=== PATIENT | female | born 1980 | race Caucasian/White ===

== ENCOUNTER 2017-06-21 20:10 | Emergency (ER) | payer BC, OTHER ==
[~2017-06-21] VITALS: Ht 165.1 cm; Wt 93.0 kg
[~2017-06-21 20:10] MED LIST: AMOX250C PO; CYAN100T PO; CYCL10TA9 PO; DCS100C PO; HYDR-34 PO; IBP600T1 PO; KETO-22 PO; MULT1CAP27 PO; NAPR-243 PO; NFBIOT1000 PO; NORG1TAB15 PO; OXYC-12 PO; PRM25T PO; Simethicone PO; TRAM50TA2 PO
--- OUTSIDE RECORDS SUMMARY | 2017-06-21 20:16 | XMS REPORT ---
Author Author ROMY EDMONDS [facility], [place] eClinicalWorks Address Unknown Phone Unavailable Care Team Providers Care Communications Consultant Name Role Phone ROMY EDMONDS CP Unavailable Allergies, Adverse Reactions, Alerts Substance Reaction Event Type N.K.D.A. Info Not Available Non Drug Allergy Problems Problem Type Condition ICD-9 Code Onset Dates Condition Status Assessment Health examination of defined subpopulation V70.5 Active Problem Health examination of defined subpopulation V70.5 Active Medications No Known Medications Procedures Procedure Coding System Code Date URINALYSIS, AUTO, W/O SCOPE CPT-4 63209 Feb 16, 2015 Vital Signs Date/Time: Feb 16, 2015 Temperature 97.7 F Weight 265.5 lbs Height 65.0 in BMI 44.18 Index Blood Pressure Diastolic 92 mmHg Blood Pressure Systolic 140 mmHg Cardiac Monitoring Heart Rate 82 bpm Results Name Result Date Reference Range Unit Abnormality Flag UA LONG DIP (IN HOUSE) Summary Purpose eClinicalWorks Submission
--- OUTSIDE RECORDS SUMMARY | 2017-06-21 20:16 | XMS REPORT | Continuity of Care Document ---
Author Author [facility] Organization [facility] Address Unknown Phone Unavailable Allergies Active Description Code Type Severity Reaction Onset Reported/Identified Relationship to Patient Clinical Status Yes No Known Drug Allergies [id number] Drug Allergy Unknown N/A 04/02/2011 Medications There is no data. 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 11/22/2011 Ot V06.1 DIPHTHERIA- TETANUS-PERTUSSIS, COMBINED [ 01/02/2014 GONZALES SHIELDS DO Ot 540.9 ACUTE APPENDICITIS NOS 06/24/2014 Ot 786.09 06/24/2014 Ot 786.50 06/24/2014 Ot E000.8 06/24/2014 Ot E819.9 07/29/2014 Ot 786.09 07/29/2014 Ot 786.50 07/29/2014 Ot E000.8 07/29/2014 Ot E819.9 07/29/2014 ADOLPH GAYTAN CYLINDER BLOCK MECHANIC Ot 240.9 07/29/2014 ADOLPH GAYTAN CYLINDER BLOCK MECHANIC Ot 625.9 08/08/2014 ROZ WAGNER DO Ot 617.0 UTERINE ENDOMETRIOSIS 08/08/2014 ROZ WAGNER DO Ot 617.2 TUBAL ENDOMETRIOSIS 08/08/2014 ROZ WAGNER DO Ot 617.3 PELV PERIT ENDOMETRIOSIS 08/08/2014 ROZ WAGNER DO Ot 621.8 DISORDERS OF UTERUS NEC 08/08/2014 ROZ WAGNER DO Ot 625.0 DYSPAREUNIA 08/08/2014 ROZ WAGNER DO Ot 625.3 DYSMENORRHEA 11/04/2014 Ot 786.09 11/04/2014 Ot 786.50 11/04/2014 Ot E000.8 11/04/2014 Ot E819.9 11/04/2014 ADOLPH GAYTAN [employer]LIND[employer] MECHANIC Ot 240.9 11/04/2014 ADOLPH GAYTAN [employer]LINDER BLOCK MECHANIC Ot 625.9 11/04/2014 ROZ WAGNER DO Ot 617.9 11/04/2014 ROZ WAGNER DO Ot V72.63 11/04/2014 ROZ WAGNER DO Ot V74.8 03/24/2015 Ot 786.09 03/24/2015 Ot 786.50 03/24/2015 Ot E000.8 03/24/2015 Ot E819.9 03/24/2015 ADOLPH GAYTAN [employer]LIND[employer] MECHANIC Ot 240.9 03/24/2015 ADOLPH GAYTAN [employer]LINDER BLOCK MECHANIC Ot 625.9 03/24/2015 ROZ WAGNER DO Ot 617.9 03/24/2015 ROZ WAGNER DO Ot V72.63 03/24/2015 ROZ WAGNER DO Ot V74.8 12/24/2015 Ot 786.09 RESPIRATORY ABNORM NEC 12/24/2015 Ot 786.50 CHEST PAIN NOS 12/24/2015 Ot E000.8 OTHER EXTERNAL CAUSE STATUS 12/24/2015 Ot E819.9 TRAFFIC ACC NOS-PERS NOS 12/24/2015 ADOLPH GAYTAN [employer] MECHANIC Ot 240.9 GOITER NOS 12/24/2015 ADOLPH GAYTAN [employer] MECHANIC Ot 625.9 FEM GENITAL SYMPTOMS NOS 12/24/2015 ROZ WAGNER DO Ot 617.9 ENDOMETRIOSIS NOS 12/24/2015 ROZ WAGNER DO Ot V72.63 PRE-PROCEDURAL LABORATORY EXAMINATION 12/24/2015 ROZ WAGNER DO Ot V74.8 SCREEN-BACTERIAL DIS NEC 05/04/2016 Ot 786.09 RESPIRATORY ABNORM NEC 05/04/2016 Ot 786.50 CHEST PAIN NOS 05/04/2016 Ot E000.8 OTHER EXTERNAL CAUSE STATUS 05/04/2016 Ot E819.9 TRAFFIC ACC NOS-PERS NOS 05/04/2016 ADOLPH GAYTAN L [employer] MECHANIC Ot 240.9 GOITER NOS 05/04/2016 GAYTANADOLPH SOUZA L CYLINDER BLOCK MECHANIC Ot 625.9 FEM GENITAL SYMPTOMS NOS 05/04/2016 ROZ WAGNER DO S Ot 617.9 ENDOMETRIOSIS NOS 05/04/2016 ROZ WAGNER DO S Ot V72.63 PRE-PROCEDURAL LABORATORY EXAMINATION 05/04/2016 ROZ WAGNER DO S Ot V74.8 SCREEN-BACTERIAL DIS NEC 05/18/2016 ESTEFANYNDER NED LAMBERTLINE S Ot N64.4 MASTODYNIA 05/19/2016 ESTEFANYNDER NED LAMBERTLINE S Ot N64.4 MASTODYNIA 07/12/2016 Ot 786.09 RESPIRATORY ABNORM NEC 07/12/2016 Ot 786.50 CHEST PAIN NOS 07/12/2016 Ot E000.8 OTHER EXTERNAL CAUSE STATUS 07/12/2016 Ot E819.9 TRAFFIC ACC NOS-PERS NOS 07/12/2016 ADOLPH GAYTAN L [employer] MECHANIC Ot 240.9 GOITER NOS 07/12/2016 ADOLPH GAYTAN L [employer] MECHANIC Ot 625.9 FEM GENITAL SYMPTOMS NOS 07/12/2016 ROZ WAGNER DO S Ot 617.9 ENDOMETRIOSIS NOS 07/12/2016 KRISTY LAMBERT ROZ S Ot V72.63 PRE-PROCEDURAL LABORATORY EXAMINATION 07/12/2016 ROZ WAGNER DO S Ot V74.8 SCREEN-BACTERIAL DIS NEC 07/12/2016 JORDON LITTLEJOHN DO S Ot N64.4 MASTODYNIA 07/13/2016 Ot 786.09 RESPIRATORY ABNORM NEC 07/13/2016 Ot 786.50 CHEST PAIN NOS 07/13/2016 Ot E000.8 OTHER EXTERNAL CAUSE STATUS 07/13/2016 Ot E819.9 TRAFFIC ACC NOS-PERS NOS 07/13/2016 ADOLPH GAYTAN L [employer] MECHANIC Ot 240.9 GOITER NOS 07/13/2016 ADOLPH GAYTAN L CYLINDER [employer] MECHANIC Ot 625.9 FEM GENITAL SYMPTOMS NOS 07/13/2016 ROZ WAGNER DO S Ot 617.9 ENDOMETRIOSIS NOS 07/13/2016 KRISTY LAMBERTROZ S Ot V72.63 PRE-PROCEDURAL LABORATORY EXAMINATION 07/13/2016 KRISTY LAMBERT ROZ S Ot V74.8 SCREEN-BACTERIAL DIS NEC 07/13/2016 JORDON LITTLEJOHN DO S Ot N64.4 MASTODYNIA Procedures There is no data. Results There is no data. Encounters ACCT No. Visit Date/Time Discharge Status Pt. Type Provider Facility Loc./Unit Complaint [id number] 05/18/2016 13:01:00 05/18/2016 23:59:59 CLS Outpatient ERON LAMBERT JORDON Andrew [facility] RAD LT MASTALGIA [id number] 08/07/2014 06:00:00 08/08/2014 11:20:00 DIS Outpatient ROZ WAGNER DO [facility] ENDOMETRIOSIS [id number] 07/31/2014 08:33:00 07/31/2014 23:59:59 CLS Outpatient ROZ WAGNER DO [facility] PREOP ENDOMETRIOSIS [id number] 06/24/2014 14:36:00 06/24/2014 23:59:59 CLS Outpatient ADOLPH GAYTAN [employer]LINDER [employer] MECHANIC [facility] RAD THYROMEGALY, PELVIC PAIN [id number] 01/01/2014 20:14:00 01/02/2014 11:50:00 DIS Outpatient GONZALES SHIELDS DO [facility] SDC APPENDICITIS [id number] 12/01/2011 14:06:00 Document Registration [id number] 11/22/2011 18:48:00 Document Registration [id number] 04/02/2011 08:36:00 Document Registration
[2017-06-21 20:33] LABS: BILIRUBIN,URINE 1+ (NEGATIVE); KETONES,URINE NEGATIVE (NEGATIVE); LEUKOCYTE ESTERASE ,URINE NEGATIVE (NEGATIVE); NITRITE,URINE NEGATIVE (NEGATIVE); PH,URINE 6 (5-9); PROTEIN,URINE 1+ (NEGATIVE); UROBILINOGEN,URINE 1 MG/DL (NORMAL)
[2017-06-21 20:40] LABS: BASOPHILS % (AUTO) 0 % (0-10); EOSINOPHILS # (AUTO) 0.1 10^3/uL (0.0-0.3); EOSINOPHILS % (AUTO) 2 % (0-10); LYMPHOCYTES # (AUTO) 3.1 X 10^3 (1.0-4.0); LYMPHOCYTES % (AUTO) 41 % (12-44); MEAN CORPUSCULAR HEMOGLOBIN 30 PG (25-34); MEAN CORPUSCULAR HGB CONC 35 G/DL (32-36); MEAN CORPUSCULAR VOLUME 86 FL (80-99); MEAN PLATELET VOLUME 9.1 FL (7.4-10.4); MONOCYTES # (AUTO) 0.5 X 10^3 (0.0-1.0); MONOCYTES % (AUTO) 7 % (0-12); NEUTROPHILS # (AUTO) 3.9 X 10^3 (1.8-7.8); NEUTROPHILS % (AUTO) 51 % (42-75); PLATELET COUNT 289 10^3/uL (130-400); RED BLOOD COUNT 4.73 10^6/uL (4.35-5.85); RED CELL DISTRIBUTION WIDTH 12.5 % (10.0-14.5); WHITE BLOOD COUNT 7.6 10^3/uL (4.3-11.0)
[2017-06-21 21:03] LABS: ALANINE AMINOTRANSFERASE 46 U/L (0-55); ALBUMIN 3.8 GM/DL (3.2-4.5); ANION GAP 11 MMOL/L (5-14); ASPARTATE AMINO TRANSFERASE 34 U/L (5-34); BILIRUBIN,TOTAL 0.4 MG/DL (0.1-1.0); BLOOD UREA NITROGEN 9 MG/DL (7-18); BUN/CREATININE RATIO 13; CALCIUM 8.4 MG/DL (8.5-10.1); CARBON DIOXIDE 18 MMOL/L (21-32); CHLORIDE 110 MMOL/L (98-107); CREATININE SERUM 0.67 MG/DL (0.60-1.30); GFR ESTIMATED > 60; GLUCOSE 107 MG/DL (70-105); POTASSIUM 3.5 MMOL/L (3.6-5.0); SODIUM 139 MMOL/L (135-145); TOTAL PROTEIN 6.7 GM/DL (6.4-8.2)
[2017-06-21] MEDS ORDERED: NS IV 1000 ML 1,000 ML IV STA (21:35)
--- NOTE | 2017-06-21 21:43 | ED Abdominal Pain ---
General Chief Complaint: Abdominal/GI Problems Stated Complaint: DIARRHEA,VOMITING Nursing Triage Note: PT TO ED 6 W/ FOR C/O ABD PAIN, N/V/D ONSET 06/19, WORSE TODAY. PT REPORTS TAKING OTC ANTIDIARREA MEDS ET DENIES IMPROVEMENT. NO OTHER C/O Sepsis Screen: No Definite Risk Source of Information: Patient, Family Exam Limitations: No Limitations History of Present Illness Time Seen By Provider: 21:30 Initial Comments Here with report of nausea, vomiting and diarrhea that started 3 days ago on shirley and then worse on morning and then got better but returned somewhat yesterday and worsened today. Reports a couple episodes of vomiting and several episodes of diarrhea today thinks she may have had a fever initially but none today. Timing/Duration: 2-3 Days Severity/Quality: Moderate, Cramping Location: Generalized Abdomen Modifying Factors: Improves With Defecating, Worsens With Eating, Improves With Vomiting Associated Symptoms: No Back Pain, No Chest Pain, Fever/Chills, Fatigue, Nausea /Vomiting, No Shortness of Air, No Weakness Allergies and Home Medications Allergies Coded Allergies: No Known Drug Allergies (Unverified , 04/02/11) Home Medications Biotin 1,000 Mcg Tablet, 1,000 MCG PO DAILY, (Reported) Cyanocobalamin 100 Mcg Tablet, 100 MCG PO DAILY, (Reported) Docusate Sodium 100 Mg Cap, 100 MG PO BID PRN for CONSTIPATION, #40 Prescribed by: ROZ WAGNER on 08/08/14 09 Hydrocodone Bit/Acetaminophen 1 Ea Tablet, 1 EA PO Q6H PRN for PAIN, #50 Prescribed by: ROZ WAGNER on 08/08/14906 Ibuprofen 600 Mg Tab, 600 MG PO Q6H PRN for PAIN, #60 Prescribed by: ROZ WAGNER on 08/08/14 09 Multivitamins 1 Each Capsule, 1 EACH PO DAILY, (Reported) [Simethicone] 80 MG CHEW, 40 MG PO TID PRN for INDIGESTION, #40 Prescribed by: ROZ WAGNER on 08/08/14 09 Review of Systems Constitutional: see HPI, No chills, No fever EENTM: No Symptoms Reported Respiratory: No Symptoms Reported Cardiovascular: No Symptoms Reported Gastrointestinal: See HPI, Abdominal Pain, Diarrhea, Nausea, Vomiting Genitourinary: No Symptoms Reported Musculoskeletal: no symptoms reported Skin: no symptoms reported All Other Systems Reviewed Negative Unless Noted: Yes Past Bxtszic-Uzpllg-Mobjxx Hx Patient Social History Alcohol Use: Occasionally Uses Recreational Drug Use: No Smoking Status: Never a Smoker 2nd Hand Smoke Exposure: Yes Recent Foreign Travel: No Contact w/Someone Who Travel: No Recent Infectious Disease Expo: No Recent Hopitalizations: No Physical Abuse: No Sexual Abuse: No Mistreated: No Fear: No Surgeries History of Surgeries: Yes Surgeries: Appendectomy, Section, Hysterectomy Respiratory History of Respiratory Disorde: No Cardiovascular History of Cardiac Disorders: No Neurological History of Neurological Disord: No Reproductive System Hx Reproductive Disorders: Yes Sexually Transmitted Disease: No Gastrointestinal History of Gastrointestinal Di: No Musculoskeletal History of Musculoskeletal Dis: No Endocrine History of Endocrine Disorders: No Cancer History of Cancer: No Psychosocial History of Psychiatric Problem: No Suicide Risk Score: 0 Integumentary History of Skin or Integumenta: No Blood Transfusions History of Blood Disorders: No Reviewed Nursing Assessment Reviewed/Agree w Nursing PMH: Yes Family Medical History Family Medial History: Family history: Diabetes mellitus 19 MOTHER Family history: Hypertension 19 FATHER 19 MOTHER Physical Exam Vital Signs VS - Last 72 Hours, by Label 06/21/17 20:19 Temp 96.4 Pulse 75 Resp 18 B/P (MAP) 125/90 (102) Pulse Ox 97 O2 Delivery Room Air Capillary Refill : Less Than 3 Seconds General Appearance: WD/WN, no apparent distress HEENT: PERRL/EOMI, pharynx normal Neck: full range of motion, supple Respiratory: lungs clear, normal breath sounds Cardiovascular: regular rate, rhythm, no murmur Gastrointestinal: normal bowel sounds, non tender, soft Extremities: non-tender, normal inspection Back: normal inspection, no CVA tenderness, no vertebral tenderness Neurologic/Psychiatric: alert, oriented x 3 Skin: normal color, warm/dry Progress/Results/Core Measures Results/Orders Lab Results Laboratory Tests Test 06/21/17 20:23 06/21/17 20:34 Range/Units Urine Color YELLOW Urine Clarity SLIGHTLY CLOUDY Urine pH 6 5-9 Urine Specific Drake 1.020 1.016-1.022 Urine Protein 1+ H NEGATIVE Urine Glucose (UA) NEGATIVE NEGATIVE Urine Ketones NEGATIVE NEGATIVE Urine Nitrite NEGATIVE NEGATIVE Urine Bilirubin 1+ H NEGATIVE Urine Urobilinogen 1 NORMAL MG/DL Urine Leukocyte Esterase NEGATIVE NEGATIVE Urine RBC (Auto) 1+ H NEGATIVE Urine RBC 2-5 H /HPF Urine WBC NONE /HPF Urine Squamous Epithelial Cells 5-10 /HPF Urine Crystals NONE /LPF Urine Bacteria MODERATE H /HPF Urine Casts NONE /LPF Urine Mucus SMALL H /LPF Urine Culture Indicated NO White Blood Count 7.6 4.3-11.0 10^3/uL Red Blood Count 4.73 4.35-5.85 10^6/uL Hemoglobin 14.1 11.5-16.0 G/DL Hematocrit 41 35-52 % Mean Corpuscular Volume 86 80-99 FL Mean Corpuscular Hemoglobin 30 25-34 PG Mean Corpuscular Hemoglobin Concent 35 32-36 G/DL Red Cell Distribution Width 12.5 10.0-14.5 % Platelet Count 289 130-400 10^3/uL Mean Platelet Volume 9.1 7.4-10.4 FL Neutrophils (%) (Auto) 51 42-75 % Lymphocytes (%) (Auto) 41 12-44 % Monocytes (%) (Auto) 7 0-12 % Eosinophils (%) (Auto) 2 0-10 % Basophils (%) (Auto) 0 0-10 % Neutrophils # (Auto) 3.9 1.8-7.8 X 10^3 Lymphocytes # (Auto) 3.1 1.0-4.0 X 10^3 Monocytes # (Auto) 0.5 0.0-1.0 X 10^3 Eosinophils # (Auto) 0.1 0.0-0.3 10^3/uL Basophils # (Auto) 0.0 0.0-0.1 10^3/uL Sodium Level 139 135-145 MMOL/L Potassium Level 3.5 L 3.6-5.0 MMOL/L Chloride Level 110 H 98-107 MMOL/L Carbon Dioxide Level 18 L 21-32 MMOL/L Anion Gap 11 5-14 MMOL/L Blood Urea Nitrogen 9 7-18 MG/DL Creatinine 0.67 0.60-1.30 MG/DL Estimat Glomerular Filtration Rate > 60 BUN/Creatinine Ratio 13 Glucose Level 107 H 70-105 MG/DL Calcium Level 8.4 L 8.5-10.1 MG/DL Total Bilirubin 0.4 0.1-1.0 MG/DL Aspartate Amino Transf (AST/SGOT) 34 5-34 U/L Alanine Aminotransferase (ALT/SGPT) 46 0-55 U/L Alkaline Phosphatase 78 40-136 U/L Total Protein 6.7 6.4-8.2 GM/DL Albumin 3.8 3.2-4.5 GM/DL My Orders Orders - MONISHA GARCIA MD Ua Culture If Indicated (06/21/17 20:27) Cbc With Automated Diff (06/21/17 20:27) Comprehensive Metabolic Panel (06/21/17 20:27) Ondansetron Injection (Zofran Injectio (06/21/17 21:45) Ns Iv 1000 Ml (Sodium Chloride 0.9%) (06/21/17 21:35) Hyoscyamine Sl Tablet (Levsin Sl Tablet) (06/21/17 21:45) Medications Given in ED Current Medications Medications Dose Ordered Sig/Jermaine Route Start Time Stop Time Status Last Admin Dose Admin Hyoscyamine Sulfate 0.125 mg ONCE ONCE SL 06/21/17 21:45 06/21/17 21:46 DC 06/21/17 21:41 0.125 MG Ondansetron HCl 4 mg ONCE ONCE IVP 06/21/17 21:45 06/21/17 21:46 DC 06/21/17 21:42 4 MG Vital Signs/I&O Vital Sign - Last 12Hours 06/21/17 20:19 Temp 96.4 Pulse 75 Resp 18 B/P (MAP) 125/90 (102) Pulse Ox 97 O2 Delivery Room Air Blood Pressure Mean: 102 Progress Note : Progress Note Seen and evaluated. IV, labs and UA ordered. Normal saline 1 L bolus. Zofran 4 mg IV and Levsin 0.125 mg by mouth. Monitor patient. 2224: Overall much improved and cramping has resolved. States that she feels like she can tolerate this at home now. Discharged home with return precautions. Patient verbalize understanding instructions and agreement with plan. Departure Impression Impression: Primary Impression: Nausea and vomiting Qualified Codes: R11.2 - Nausea with vomiting, unspecified Additional Impressions: Dehydration Diarrhea Qualified Codes: R19.7 - Diarrhea, unspecified Disposition: 01 HOME, SELF-CARE Condition: Improved Departure-Patient Inst. Decision time for Depature: 22:25 Referrals: JORDON LITTLEJOHN DO (PCP/Family) Primary Care Physician Patient Instructions: Acute Abdomen (Belly Pain), Adult (DC), Dehydration, Adult (DC), Diarrhea in Adolescents and Adults, Nausea and Vomiting, Adult (DC) Add. Discharge Instructions: All discharge instructions reviewed with patient and/or family. Voiced understanding. Clear liquid diet for 24 hours and then advance as tolerated. You may take the ondansetron (Zofran) 4 mg every 4 hours as needed for nausea and vomiting. Drink plenty of fluids but taking small sips frequently. Follow-up with your Dr. in 2-3 days for recheck and further evaluation as needed. Return for worsening, fever, vomiting, weakness, breathing problems or other concerns as needed. MONISHA GARCIA MD Jun 21, 2017 21:43
[2017-06-21] MEDS ORDERED: HYOSCYAMINE 0.125 MG (LEVSIN) TAB SL ONE (21:45)
[2017-06-21] MEDS ORDERED: ONDANSETRON 4 MG/2 ML (SDV) Z0FRAN IVP ONE (21:45)
[2017-06-21] MEDS ORDERED: RX-ONDANSETRON 4 MG ODT (ZOFRAN) PPK #4 PO STA (22:23)
[2017-06-21 22:36] VITALS: BP 121/79
== END 2017-06-21 22:36 | disposition home or self-care (01) ==
LOC: EDUNIT# 20:10 → ER 20:11
DX: R11.2 Nausea with vomiting, unspecified (principal); E86.0 Dehydration; R19.7 Diarrhea, unspecified; Z77.22 Contact with and (suspected) exposure to environmental tobacco smoke (acute) (chronic); Z90.710 Acquired absence of both cervix and uterus; Z90.49 Acquired absence of other specified parts of digestive tract
CPT/HCPCS: 36415; 80053; 81000; 85025; 96361; 96374

== ENCOUNTER → 2017-11-24 | Outpatient (CLI) | payer BC ==
[2017-11-24 11:46] LABS: BASOPHILS % (AUTO) 1 % (0-10); EOSINOPHILS # (AUTO) 0.1 10^3/uL (0.0-0.3); EOSINOPHILS % (AUTO) 1 % (0-10); HEMATOCRIT 41 % (35-52); HEMOGLOBIN 14.2 G/DL (11.5-16.0); LYMPHOCYTES # (AUTO) 2.6 X 10^3 (1.0-4.0); LYMPHOCYTES % (AUTO) 31 % (12-44); MEAN CORPUSCULAR HEMOGLOBIN 30 PG (25-34); MEAN CORPUSCULAR HGB CONC 35 G/DL (32-36); MEAN CORPUSCULAR VOLUME 86 FL (80-99); MEAN PLATELET VOLUME 9.2 FL (7.4-10.4); MONOCYTES # (AUTO) 0.7 X 10^3 (0.0-1.0); MONOCYTES % (AUTO) 8 % (0-12); NEUTROPHILS # (AUTO) 5.1 X 10^3 (1.8-7.8); NEUTROPHILS % (AUTO) 60 % (42-75); PLATELET COUNT 302 10^3/uL (130-400); RED BLOOD COUNT 4.76 10^6/uL (4.35-5.85); RED CELL DISTRIBUTION WIDTH 12.9 % (10.0-14.5); WHITE BLOOD COUNT 8.5 10^3/uL (4.3-11.0)
[2017-11-24 12:11] LABS: ALANINE AMINOTRANSFERASE 14 U/L (0-55); ALBUMIN 4.2 GM/DL (3.2-4.5); ALKALINE PHOSPHATASE 71 U/L (40-136); BILIRUBIN,TOTAL 0.4 MG/DL (0.1-1.0); BUN/CREATININE RATIO 12; CALCIUM 9.1 MG/DL (8.5-10.1); CARBON DIOXIDE 19 MMOL/L (21-32); CHLORIDE 110 MMOL/L (98-107); CREATININE SERUM 0.76 MG/DL (0.60-1.30); GFR ESTIMATED > 60; GLUCOSE 97 MG/DL (70-105); POTASSIUM 4.1 MMOL/L (3.6-5.0); SODIUM 138 MMOL/L (135-145); TOTAL PROTEIN 7.3 GM/DL (6.4-8.2)
== END ==
LOC: LAB 11:25
PROVIDERS: ATTEND Nurse Practitioner Family
DX: R10.2 Pelvic and perineal pain (principal); R53.81 Other malaise; R82.2 Biliuria
CPT/HCPCS: 36415; 80053; 85025

== ENCOUNTER → 2017-11-29 | Outpatient (CLI) | payer BC ==
[~2017-11-29] MED LIST changes: +IOHEXOL 350 MG/ML 100 ML (OMNIPAQUE 350) VIAL IV ONE; +NS 250 ML (IVPB) BAG IV ONE
--- NOTE | 2017-11-29 09:41 | Diagnostic Imaging Report ---
PROCEDURE: CT abdomen and pelvis with and without contrast. TECHNIQUE: Precontrast acquisitions were acquired through the abdomen and pelvis. Multiple contiguous axial images were obtained through the abdomen and pelvis after the administration of intravenous contrast. INDICATION: Abdominal pain. The previous CT abdomen/pelvis exam 01/01/2014 indicated acute appendicitis. In the interval since the prior exam the patient has undergone an appendectomy. On the pre-intravenous contrast series on this exam there is a 3 mm nodule to the calculus within the left kidney. In retrospect this was present on the prior study and has not changed. Both kidneys do show excretion of the contrast and there is no sign of obstruction of either collecting system. There is no evidence for a solid renal mass either. The liver is of lower density than usually seen. This does suggest fatty metamorphosis. The spleen, pancreas, adrenals, gallbladder, aorta and inferior vena cava are unremarkable for an acute abnormality. The stomach is partially filled with fluid and consequently difficult to assess. There is no pelvic mass or free fluid collection noted. The uterus is surgically absent. The urinary bladder is grossly unremarkable. The bone windows show no sign of a fracture or destructive lesion. The lung bases are clear. IMPRESSION: 1. In the interval since the prior exam the patient has undergone an appendectomy. There is no acute abnormality of the abdomen or pelvis identified on this exam. 2. There is a small nonobstructive calculus within the left kidney. 3. The appearance of the liver does suggest fatty metamorphosis. 4. The uterus is surgically absent. Dictated by: Dictated on workstation # [id number]
== END ==
LOC: RAD 07:23
PROVIDERS: ATTEND Family Medicine
DX: N20.0 Calculus of kidney (principal); Z90.710 Acquired absence of both cervix and uterus; Z98.890 Other specified postprocedural states
CPT/HCPCS: 74178

== ENCOUNTER → 2017-12-12 | Outpatient (CLI) | payer BC ==
[~2017-12-12] MED LIST changes: -IOHEXOL 350 MG/ML 100 ML (OMNIPAQUE 350) VIAL IV ONE; -NS 250 ML (IVPB) BAG IV ONE
--- NOTE | 2017-12-12 08:31 | Diagnostic Imaging Report ---
INDICATION: Nausea, abdominal pain. TECHNIQUE: Multiple grayscale sonographic images were obtained of the right upper quadrant of the abdomen. CORRELATION STUDY: None FINDINGS: LIVER: There is uniform echotexture within the visualized portions of the liver. Liver length at 17 cm. GALLBLADDER: The gallbladder demonstrates no definitive shadowing gallstones. No abnormal gallbladder wall thickening or pericholecystic fluid. COMMON BILE DUCT: Upper limits of normal at 6 mm. PANCREAS: Largely obscured and not well visualized. RIGHT KIDNEY: Measures 10.3 cm. No hydronephrosis. AORTA/IVC: Not well visualized. OTHER: None. IMPRESSION: 1. Negative for gallstones. Common bile duct is at the upper limits of normal in size. Etiology or significance indeterminate. Dictated by: Dictated on workstation # [id number]
== END ==
LOC: RAD 07:10
PROVIDERS: ATTEND Surgery
DX: R10.9 Unspecified abdominal pain (principal); R11.0 Nausea; H92.01 Otalgia, right ear
CPT/HCPCS: 76705

== ENCOUNTER 2018-02-27 17:55 | Emergency (ER) | payer BC ==
[~2018-02-27] VITALS: Ht 165.1 cm; Wt 95.3 kg
[2018-02-27] MEDS ORDERED: DOXY100C2 (18:29)
[2018-02-27 18:55] LABS: BASOPHILS % (AUTO) 0 % (0-10); EOSINOPHILS # (AUTO) 0.2 10^3/uL (0.0-0.3); EOSINOPHILS % (AUTO) 2 % (0-10); HEMATOCRIT 38 % (35-52); HEMOGLOBIN 13.2 G/DL (11.5-16.0); LYMPHOCYTES # (AUTO) 3.3 X 10^3 (1.0-4.0); LYMPHOCYTES % (AUTO) 31 % (12-44); MEAN CORPUSCULAR HGB CONC 35 G/DL (32-36); MEAN CORPUSCULAR VOLUME 88 FL (80-99); MEAN PLATELET VOLUME 9.3 FL (7.4-10.4); MONOCYTES # (AUTO) 0.7 X 10^3 (0.0-1.0); MONOCYTES % (AUTO) 6 % (0-12); NEUTROPHILS # (AUTO) 6.7 X 10^3 (1.8-7.8); NEUTROPHILS % (AUTO) 61 % (42-75); PLATELET COUNT 322 10^3/uL (130-400); RED BLOOD COUNT 4.33 10^6/uL (4.35-5.85); RED CELL DISTRIBUTION WIDTH 12.7 % (10.0-14.5); WHITE BLOOD COUNT 10.9 10^3/uL (4.3-11.0)
[2018-02-27 18:56] LABS: MEAN CORPUSCULAR HEMOGLOBIN 30 PG (25-34)
[2018-02-27 19:05] LABS: INR 1.1 (0.8-1.4); PROTHROMBIN TIME PATIENT 13.7 SEC (12.2-14.7)
[2018-02-27 19:15] LABS: ALANINE AMINOTRANSFERASE 9 U/L (0-55); ALBUMIN 3.8 GM/DL (3.2-4.5); ALKALINE PHOSPHATASE 59 U/L (40-136); BILIRUBIN,TOTAL 0.2 MG/DL (0.1-1.0); BUN/CREATININE RATIO 14; CALCIUM 8.9 MG/DL (8.5-10.1); CARBON DIOXIDE 21 MMOL/L (21-32); CHLORIDE 108 MMOL/L (98-107); CREATININE SERUM 0.69 MG/DL (0.60-1.30); GFR ESTIMATED > 60; GLUCOSE 90 MG/DL (70-105); POTASSIUM 3.6 MMOL/L (3.6-5.0); SODIUM 138 MMOL/L (135-145); TOTAL PROTEIN 6.6 GM/DL (6.4-8.2)
[2018-02-27 19:21] LABS: MYOGLOBIN SERUM 15.9 NG/ML (10.0-92.0)
--- NOTE | 2018-02-27 19:49 | Diagnostic Imaging Report ---
EXAM: CHEST PA/LAT (2 VIEW) INDICATION: Chest pain. COMPARISON: Chest radiograph 12/01/2011. FINDINGS: Normal heart size and pulmonary vascularity. No focal pulmonary opacity, pleural effusion or pneumothorax. No acute osseous findings. IMPRESSION: No acute cardiopulmonary findings. Dictated by: Dictated on workstation # [id number]
--- NOTE | 2018-02-27 20:09 | ED General ---
General Chief Complaint: General Problems/Pain Stated Complaint: LYMPNODES/NECK/UNDERSIDE OF ARMS PAIN, HEADACHE Nursing Triage Note: AMB TO ROOM REPORTS 1 WEEK AGO NOTICED A KNOT UNDER R ARM. HAD MAMOGRAM AND SONO THAT WAS NEG. THEN REMEMBER THAT SHE HAD A TICK BITE. [facility] ON 02/21 THAN WAS CALLED AND TOLD HER TULAREMIA WAS FUNNY AND NEEDED TO BE PUT ON DOXYCYCLINE HAS BEEN ON IT SINCE MONDAY HAS NOT FELT ANY BETTR HAS FELT WORSE UNSURE IF SHE HAS HAD ANY FEVERS. C/O SWOLLEN GLANDS AND HEADACHE Nursing Sepsis Screen: No Definite Risk Source of Information: Patient Exam Limitations: No Limitations History of Present Illness Date Seen by Provider: Feb 27, 2018 Time Seen by Provider: 18:25 Initial Comments This 37-year-old woman presents to the emergency room with complaints of feeling ill with headache, chest discomfort, "fuzzy headed feeling", swollen axillary lymph nodes, and numbness in the bilateral upper extremities. She was recently diagnosed with tularemia and has taken 10 doses of doxycycline. She is concerned that she is not feeling better after several days of medication, infection feels worse. She has had some night sweats but denies fevers. She has had no nausea, vomiting or diarrhea. She had some chest tightness this afternoon that is now gone. Her primary care provider is Dr. LITTLEJOHN. Allergies and Home Medications Allergies Coded Allergies: No Known Drug Allergies (Unverified , 04/02/11) Home Medications Biotin 1,000 Mcg Tablet, 1,000 MCG PO DAILY, (Reported) Cyanocobalamin 100 Mcg Tablet, 100 MCG PO DAILY, (Reported) Docusate Sodium 100 Mg Cap, 100 MG PO BID PRN for CONSTIPATION Prescribed by: ROZ WAGNER on 08/08/14906 Hydrocodone Bit/Acetaminophen 1 Ea Tablet, 1 EA PO Q6H PRN for PAIN Prescribed by: ROZ WAGNER on 08/08/14906 Ibuprofen 600 Mg Tab, 600 MG PO Q6H PRN for PAIN Prescribed by: ROZ WAGNER on 08/08/14906 Multivitamins 1 Each Capsule, 1 EACH PO DAILY, (Reported) [Simethicone] 80 MG CHEW, 40 MG PO TID PRN for INDIGESTION Prescribed by: ROZ WAGNER on 08/08/14906 Patient Home Medication List Home Medication List Reviewed: Yes Review of Systems Review of Systems Constitutional: no symptoms reported EENTM: see HPI Respiratory: see HPI Cardiovascular: see HPI Gastrointestinal: no symptoms reported Genitourinary: no symptoms reported : No Musculoskeletal: see HPI Skin: no symptoms reported Psychiatric/Neurological: See HPI Hematologic/Lymphatic: No Symptoms Reported Immunological/Allergic: no symptoms reported Past Gwlxicl-Uarugm-Hbmnhj Hx Past Med/Social Hx: Reviewed and Corrections made Patient Social History Alcohol Use: Occasionally Uses Recreational Drug Use: No 2nd Hand Smoke Exposure: Yes Recent Foreign Travel: No Contact w/Someone Who Travel: No Recent Infectious Disease Expo: No Recent Hopitalizations: No Past Medical History Surgeries: Yes Appendectomy, Section, Hysterectomy Respiratory: No Cardiac: No Neurological: No Reproductive Disorders: Yes Sexually Transmitted Disease: No Genitourinary: Yes (Interstitial cystitis) Gastrointestinal: No Musculoskeletal: No Endocrine: No Cancer: No Psychosocial: No Integumentary: No Blood Disorders: No Family Medical History Reviewed and Corrections made Family history: Diabetes mellitus 19 MOTHER Family history: Hypertension 19 FATHER 19 MOTHER No Family History of: AIDS Alcoholism Arthritis Asthma Cancer of mouth Cardiovascular disease Colon cancer Drug abuse Kidney disease Myocardial infarction Prostate cancer Psychosocial problem Respiratory disorder Seizure disorder Severe allergy Thyroid disease Tuberculosis Hypertension Physical Exam Vital Signs Vital Signs - First Documented 02/27/18 02/27/18 18:16 20:19 Temp 98.8 Pulse 65 Resp 18 B/P (MAP) 132/77 (95) Pulse Ox 98 O2 Delivery Room Air Capillary Refill : Less Than 3 Seconds Height, Weight, BMI Height: 5'5.00" Weight: 210lbs. 0.0oz. 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 Norm as Tested Skin: Normal Color, Warm/Dry Progress/Results/Core Measures Suspected Sepsis Recent Fever Within 48 Hours: No Infection Criteria Present: None New/Unexplained Altered Menta: No Sepsis Screen: No Definite Risk SIRS Temperature:98.8 Pulse: 65 Respiratory Rate: 18 Laboratory Tests 02/27/18 18:47: White Blood Count 10.9 Blood Pressure 132 /77 Mean: 95 Laboratory Tests 02/27/18 18:47: Creatinine 0.69, INR Comment 1.1, Platelet Count 322, Total Bilirubin 0.2 Results/Orders Lab Results My Orders Vital Signs/I&O Capillary Refill : Less Than 3 Seconds Blood Pressure Mean: 95 ECG Initial ECG Impression Date: Feb 27, 2018 Initial ECG Impression Time: 18:46 Initial ECG Rate: 61 Initial ECG Rhythm: Normal Sinus Initial ECG Intervals: Normal Initial ECG Impression: Normal Comment Normal sinus rhythm with no ST elevation or depression. No abnormal intervals or axis deviation. Diagnostic Imaging Diagonstic Imaging: Xray Plain Films/CT/US/NM/MRI: chest Comments Chest x-ray viewed by me and report reviewed. See report below: NAME: NOMAN BURROUGHS [facility] REC#: [id number] PT STATUS: DEP ER : 1980 PHYSICIAN: NIKKI CAMARENA MD ADMIT DATE: 02/27/18/ER Signed Date of Exam: 02/27/18 CHEST PA/LAT (2 VIEW) EXAM: CHEST PA/LAT (2 VIEW) INDICATION: Chest pain. COMPARISON: Chest radiograph 12/01/2011. FINDINGS: Normal heart size and pulmonary vascularity. No focal pulmonary opacity, pleural effusion or pneumothorax. No acute osseous findings. IMPRESSION: No acute cardiopulmonary findings. Dictated by: Dictated on workstation # [id number] Dict: 02/27/181941 Trans: 02/27/182231 Interpreted by: KADY GARZA MD Electronically signed by: KADY GARZA MD 02/27/182231 Departure Impression Primary Impression: Tularemia Additional Impressions: Headache Qualified Codes: R51 - Headache Chest tightness Disposition: 01 HOME, SELF-CARE Condition: Stable Departure-Patient Inst. Referrals: JORDON LITTLEJOHN DO (PCP/Family) Primary Care Physician Patient Instructions: Tularemia Add. Discharge Instructions: Drink plenty of clear liquids. Continue with doxycycline as prescribed. Please contact Dr. LITTLEJOHN tomorrow and give her an update on your status. You may take ibuprofen up to 600 mg every 6 hours as needed for pain. Add Tylenol ( acetaminophen) up to 1000 mg every 6 hours as needed for additional pain relief. Return to care if symptoms are worsening. All discharge instructions reviewed with patient and/or family. Voiced understanding. Copy Copies To 1: JORDON LITTLEJOHN JOSHUA T MD Feb 27, 2018 20:09
[2018-02-27 20:19] VITALS: BP 120/75
--- OUTSIDE RECORDS SUMMARY | 2018-02-27 21:59 | XMS REPORT ---
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) Z02.89 and Encounter for pre-employment examination Z02.1 [facility] [id number] [address] Jan, Health examination of defined subpopulation V70.5 IMMUNIZATIONS No Known Immunizations SOCIAL HISTORY Never Assessed REASON FOR VISIT DOT daniel- Berry Robledo RN PLAN OF CARE VITAL SIGNS Height 65.0 in 2017-03-01 Weight 224 lbs 2017-03-01 Heart Rate 76 bpm 2017-03-01 Respiratory Rate 16 2017-03-01 BMI 37.27 kg/m2 2017-03-01 Blood pressure systolic 136 mmHg 2017-03-01 Blood pressure diastolic 80 mmHg 2017-03-01 MEDICATIONS No Known Medications RESULTS No Results PROCEDURES Procedure Date Ordered Result Body Site URINALYSIS, AUTO, W/O SCOPE Mar 01, 2017 INSTRUCTIONS MEDICATIONS ADMINISTERED No Known Medications MEDICAL (GENERAL) HISTORY Type Description Date Surgical History section 2000 Surgical History appendectomy 2013 Surgical History partial hysterectomy 08/2014
--- OUTSIDE RECORDS SUMMARY | 2018-02-27 22:00 | XMS REPORT | Continuity of Care Document ---
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 11/22/2011 Ot V06.1 DIPHTHERIA- TETANUS-PERTUSSIS, COMBINED [ 01/02/2014 GONZALES SHIELDS DO Ot 540.9 ACUTE APPENDICITIS NOS 06/24/2014 Ot 786.09 06/24/2014 Ot 786.50 06/24/2014 Ot E000.8 06/24/2014 Ot E819.9 07/29/2014 Ot 786.09 07/29/2014 Ot 786.50 07/29/2014 Ot E000.8 07/29/2014 Ot E819.9 07/29/2014 ADOLPH GAYTAN ROTARY DRYER OPERATOR Ot 240.9 07/29/2014 ADOLPH GAYTAN ROTARY DRYER OPERATOR Ot 625.9 08/08/2014 ROZ WAGNER DO Ot [...] E000.8 11/04/2014 Ot E819.9 11/04/2014 ADOLPH GAYTAN ROTARY DRYER OPERATOR Ot 240.9 11/04/2014 ADOLPH GAYTAN ROTARY DRYER OPERATOR Ot 625.9 11/04/2014 ROZ WAGNER DO Ot 617.9 11/04/2014 ROZ WAGNER DO Ot V72.63 11/04/2014 ROZ WAGNER DO Ot V74.8 03/24/2015 Ot 786.09 03/24/2015 Ot 786.50 03/24/2015 Ot E000.8 03/24/2015 Ot E819.9 03/24/2015 ADOLPH GAYTAN ROTARY DRYER OPERATOR Ot 240.9 03/24/2015 ADOLPH GAYTAN ROTARY DRYER OPERATOR Ot 625.9 03/24/2015 ROZ WAGNER DO Ot 617.9 03/24/2015 ROZ WAGNER DO Ot V72.63 03/24/2015 ROZ WAGNER DO Ot V74.8 12/24/2015 Ot 786.09 RESPIRATORY ABNORM NEC 12/24/2015 Ot 786.50 CHEST PAIN NOS 12/24/2015 Ot E000.8 OTHER EXTERNAL CAUSE STATUS 12/24/2015 Ot E819.9 TRAFFIC ACC NOS-PERS NOS 12/24/2015 ADOLPH GAYTAN ROTARY DRYER OPERATOR Ot 240.9 GOITER NOS 12/24/2015 ADOLPH GAYTAN ROTARY DRYER OPERATOR Ot 625.9 FEM GENITAL SYMPTOMS NOS 12/24/2015 ROZ WAGNER DO Ot 617.9 ENDOMETRIOSIS NOS 12/24/2015 ROZ WAGNER DO Ot V72.63 PRE-PROCEDURAL LABORATORY EXAMINATION 12/24/2015 ROZ WAGNER DO Ot V74.8 SCREEN-BACTERIAL DIS NEC 05/04/2016 Ot 786.09 RESPIRATORY ABNORM NEC 05/04/2016 Ot 786.50 CHEST PAIN NOS 05/04/2016 Ot E000.8 OTHER EXTERNAL CAUSE STATUS 05/04/2016 Ot E819.9 TRAFFIC ACC NOS-PERS NOS 05/04/2016 ADOLPH GAYTAN L ROTARY DRYER OPERATOR Ot 240.9 GOITER NOS 05/04/2016 GAYTANADOLPH SOUZA L ROTARY DRYER OPERATOR Ot 625.9 FEM GENITAL SYMPTOMS NOS 05/04/2016 ROZ WAGNER DO S Ot 617.9 ENDOMETRIOSIS NOS 05/04/2016 ROZ WAGNER DO S Ot V72.63 PRE-PROCEDURAL LABORATORY EXAMINATION 05/04/2016 ROZ WAGNER DO S Ot V74.8 SCREEN-BACTERIAL DIS NEC 05/18/2016 ORENDER NED LAMBERTLINE S Ot N64.4 MASTODYNIA 05/19/2016 ESTEFANYNDER DOJANETKATE S Ot N64.4 MASTODYNIA 07/12/2016 Ot 786.09 RESPIRATORY ABNORM NEC 07/12/2016 Ot 786.50 CHEST PAIN NOS 07/12/2016 Ot E000.8 OTHER EXTERNAL CAUSE STATUS 07/12/2016 Ot E819.9 TRAFFIC ACC NOS-PERS NOS 07/12/2016 ADOLPH GAYTAN L ROTARY DRYER OPERATOR Ot 240.9 GOITER NOS 07/12/2016 ADOLPH GAYTAN L ROTARY DRYER OPERATOR Ot 625.9 FEM GENITAL SYMPTOMS NOS 07/12/2016 KRISTY LAMBERT ROZ S Ot 617.9 ENDOMETRIOSIS NOS 07/12/2016 KRISTY LAMBERT ROZ S Ot V72.63 PRE-PROCEDURAL LABORATORY EXAMINATION 07/12/2016 ROZ WAGNER DO S Ot V74.8 SCREEN-BACTERIAL DIS NEC 07/12/2016 ESTEFANYANDREW NED LAMBERTLINE S Ot N64.4 MASTODYNIA 07/13/2016 Ot 786.09 RESPIRATORY ABNORM NEC 07/13/2016 Ot 786.50 CHEST PAIN NOS 07/13/2016 Ot E000.8 OTHER EXTERNAL CAUSE STATUS 07/13/2016 Ot E819.9 TRAFFIC ACC NOS-PERS NOS 07/13/2016 GAYTANADOLPH SOUZA L ROTARY DRYER OPERATOR Ot 240.9 GOITER NOS 07/13/2016 ADOLPH GAYTAN L ROTARY DRYER OPERATOR Ot 625.9 FEM GENITAL SYMPTOMS NOS 07/13/2016 KRISTY LAMBERT ROZ S Ot 617.9 ENDOMETRIOSIS NOS 07/13/2016 ROZ WAGNER DO S Ot V72.63 PRE-PROCEDURAL LABORATORY EXAMINATION 07/13/2016 ROZ WAGNER DO S Ot V74.8 SCREEN-BACTERIAL DIS NEC 07/13/2016 ESTEFANYNDER NED LAMBERTLINE S Ot N64.4 MASTODYNIA 06/21/2017 MONISHA GARCIA MD Ot E86.0 DEHYDRATION 06/21/2017 MONISHA GARCIA MD Ot R11.2 NAUSEA WITH VOMITING, UNSPECIFIED 06/21/2017 MONISHA GARCIA MD Ot R19.7 DIARRHEA, UNSPECIFIED 06/21/2017 MONISHA GARCIA MD Ot Z77.22 CNTCT W AND EXPSR TO ENVIRON TOBACCO SMO 06/21/2017 MONISHA GARCIA MD Ot Z90.49 ACQUIRED ABSENCE OF OTHER SPECIFIED PART 06/21/2017 MONISHA GARCIA MD Ot Z90.710 ACQUIRED ABSENCE OF BOTH CERVIX AND UTER 06/21/2017 ADOLPH GAYTAN ROTARY DRYER OPERATOR Ot 240.9 GOITER NOS 06/21/2017 ADOLPH GAYTAN ROTARY DRYER OPERATOR Ot 625.9 FEM GENITAL SYMPTOMS NOS 06/21/2017 FENECH ROZ S Ot 617.9 ENDOMETRIOSIS NOS 06/21/2017 DOROTHYECH DO ROZ S Ot V72.63 PRE-PROCEDURAL LABORATORY EXAMINATION 06/21/2017 KRISTY DO ROZ S Ot V74.8 SCREEN-BACTERIAL DIS NEC 06/21/2017 KATE BECERRA DO S Ot N64.4 MASTODYNIA 06/27/2017 MONISHA GARCIA MD Ot E86.0 DEHYDRATION 06/27/2017 MONISHA GARCIA MD Ot R11.2 NAUSEA WITH VOMITING, UNSPECIFIED 06/27/2017 MONISHA GARCIA MD Ot R19.7 DIARRHEA, UNSPECIFIED 06/27/2017 MONISHA GARCIA MD Ot Z77.22 CNTCT W AND EXPSR TO ENVIRON TOBACCO SMO 06/27/2017 MONISHA GARCIA MD Ot Z90.49 ACQUIRED ABSENCE OF OTHER SPECIFIED PART 06/27/2017 MONISHA GARCIA MD Ot Z90.710 ACQUIRED ABSENCE OF BOTH CERVIX AND UTER 11/30/2017 KATE BECERRA DO S Ot N20.0 CALCULUS OF KIDNEY 11/30/2017 JANET BECERRA DOQUELINE S Ot Z90.710 ACQUIRED ABSENCE OF BOTH CERVIX AND UTER 11/30/2017 KATE BECERRA DO S Ot Z98.890 OTHER SPECIFIED POSTPROCEDURAL STATES 12/13/2017 BOB FARIA ROTARY DRYER OPERATOR Ot R10.2 PELVIC AND PERINEAL PAIN 12/13/2017 BOB FARIA Ot R53.81 OTHER MALAISE 12/13/2017 BOB FARIA Ot R82.2 BILIURIA 12/13/2017 KATE BECERRA DO Ot N20.0 CALCULUS OF KIDNEY 12/13/2017 KATE BECERRA DO S Ot Z90.710 ACQUIRED ABSENCE OF BOTH CERVIX AND UTER 12/13/2017 KATE BECERRA DO S Ot Z98.890 OTHER SPECIFIED POSTPROCEDURAL STATES 12/26/2017 ARABELLA GALLARDO, ETHAN Harrington Ot H92.01 OTALGIA, RIGHT EAR 12/26/2017 ARABELLA GALLARDO, ETHAN Harrington Ot R10.9 UNSPECIFIED ABDOMINAL PAIN 12/26/2017 ETHAN BELL MD Ot R11.0 NAUSEA Procedures There is no data. Results Test Result Range Complete urinalysis with reflex to culture - 06/21/17 20:23 Urine color determination YELLOW NRG Urine clarity determination SLIGHTLY CLOUDY NRG Urine pH measurement by test strip 6 5-9 Specific gravity of urine by test strip 1.020 1.016- 1.022 Urine protein assay by test strip, semi-quantitative 1+ NEGATIVE Urine glucose detection by automated test strip NEGATIVE NEGATIVE Erythrocytes detection in urine sediment by light microscopy 1+ NEGATIVE Urine ketones detection by automated test strip NEGATIVE NEGATIVE Urine nitrite detection by test strip NEGATIVE NEGATIVE Urine total bilirubin detection by test strip 1+ NEGATIVE Urine urobilinogen measurement by automated test strip (mass/volume) 1 mg/dL NORMAL Urine leukocyte esterase detection by dipstick NEGATIVE NEGATIVE Automated urine sediment erythrocyte count by microscopy (number/high power field) [HPF] NRG Automated urine sediment leukocyte count by microscopy (number/high power field ) NONE NRG Bacteria detection in urine sediment by light microscopy MODERATE NRG Squamous epithelial cells detection in urine sediment by light microscopy 5-10 NRG Crystals detection in urine sediment by light microscopy NONE NRG Casts detection in urine sediment by light microscopy NONE NRG Mucus detection in urine sediment by light microscopy SMALL NRG Complete urinalysis with reflex to culture NO NRG Complete blood count (CBC) with automated white blood cell (WBC) differential - 06/21/17 20:34 Blood leukocytes automated count (number/volume) 7.6 10*3/uL 4.3-11.0 Blood erythrocytes automated count (number/volume) 4.73 10*6/uL 4.35-5.85 Venous blood hemoglobin measurement (mass/volume) 14.1 g/dL 11.5-16.0 Blood hematocrit (volume fraction) 41 % 35-52 Automated erythrocyte mean corpuscular volume 86 [foz_us] 80-99 Automated erythrocyte mean corpuscular hemoglobin (mass per erythrocyte) 30 pg 25-34 Automated erythrocyte mean corpuscular hemoglobin concentration measurement ( mass/volume) 35 g/dL 32-36 Automated erythrocyte distribution width ratio 12.5 % 10.0-14.5 Automated blood platelet count (count/volume) 289 10*3/uL 130-400 Automated blood platelet mean volume measurement 9.1 [foz_us] 7.4-10.4 Automated blood neutrophils/100 leukocytes 51 % 42-75 Automated blood lymphocytes/100 leukocytes 41 % 12-44 Blood monocytes/100 leukocytes 7 % 0-12 Automated blood eosinophils/100 leukocytes 2 % 0-10 Automated blood basophils/100 leukocytes 0 % 0-10 Blood neutrophils automated count (number/volume) 3.9 10*3 1.8-7.8 Blood lymphocytes automated count (number/volume) 3.1 10*3 1.0-4.0 Blood monocytes automated count (number/volume) 0.5 10*3 0.0-1.0 Automated eosinophil count 0.1 10*3/uL 0.0-0.3 Automated blood basophil count (count/volume) 0.0 10*3/uL 0.0-0.1 Comprehensive metabolic panel - 06/21/17 20:34 Serum or plasma sodium measurement (moles/volume) 139 mmol/L 135-145 Serum or plasma potassium measurement (moles/volume) 3.5 mmol/L 3.6-5.0 Serum or plasma chloride measurement (moles/volume) 110 mmol/L 98-107 Carbon dioxide 18 mmol/L 21-32 Serum or plasma anion gap determination (moles/volume) 11 mmol/L 5-14 Serum or plasma urea nitrogen measurement (mass/volume) 9 mg/dL 7-18 Serum or plasma creatinine measurement (mass/volume) 0.67 mg/dL 0.60-1.30 Serum or plasma urea nitrogen/creatinine mass ratio 13 NRG Serum or plasma creatinine measurement with calculation of estimated glomerular filtration rate > NRG Serum or plasma glucose measurement (mass/volume) 107 mg/dL 70-105 Serum or plasma calcium measurement (mass/volume) 8.4 mg/dL 8.5-10.1 Serum or plasma total bilirubin measurement (mass/volume) 0.4 mg/dL 0.1-1.0 Serum or plasma alkaline phosphatase measurement (enzymatic activity/volume) 78 U/L 40-136 Serum or plasma aspartate aminotransferase measurement (enzymatic activity/ volume) 34 U/L 5-34 Serum or plasma alanine aminotransferase measurement (enzymatic activity/volume ) 46 U/L 0-55 Serum or plasma protein measurement (mass/volume) 6.7 g/dL 6.4-8.2 Serum or plasma albumin measurement (mass/volume) 3.8 g/dL 3.2-4.5 Complete blood count (CBC) with automated white blood cell (WBC) differential - 11/24/17 11:39 Blood leukocytes automated count (number/volume) 8.5 10*3/uL 4.3-11.0 Blood erythrocytes automated count (number/volume) 4.76 10*6/uL 4.35-5.85 Venous blood hemoglobin measurement (mass/volume) 14.2 g/dL 11.5-16.0 Blood hematocrit (volume fraction) 41 % 35-52 Automated erythrocyte mean corpuscular volume 86 [foz_us] 80-99 Automated erythrocyte mean corpuscular hemoglobin (mass per erythrocyte) 30 pg 25-34 Automated erythrocyte mean corpuscular hemoglobin concentration measurement ( mass/volume) 35 g/dL 32-36 Automated erythrocyte distribution width ratio 12.9 % 10.0-14.5 Automated blood platelet count (count/volume) 302 10*3/uL 130-400 Automated blood platelet mean volume measurement 9.2 [foz_us] 7.4-10.4 Automated blood neutrophils/100 leukocytes 60 % 42-75 Automated blood lymphocytes/100 leukocytes 31 % 12-44 Blood monocytes/100 leukocytes 8 % 0-12 Automated blood eosinophils/100 leukocytes 1 % 0-10 Automated blood basophils/100 leukocytes 1 % 0-10 Blood neutrophils automated count (number/volume) 5.1 10*3 1.8-7.8 Blood lymphocytes automated count (number/volume) 2.6 10*3 1.0-4.0 Blood monocytes automated count (number/volume) 0.7 10*3 0.0-1.0 Automated eosinophil count 0.1 10*3/uL 0.0-0.3 Automated blood basophil count (count/volume) 0.0 10*3/uL 0.0-0.1 Comprehensive metabolic panel - 11/24/17 11:39 Serum or plasma sodium measurement (moles/volume) 138 mmol/L 135-145 Serum or plasma potassium measurement (moles/volume) 4.1 mmol/L 3.6-5.0 Serum or plasma chloride measurement (moles/volume) 110 mmol/L 98-107 Carbon dioxide 19 mmol/L 21-32 Serum or plasma anion gap determination (moles/volume) 9 mmol/L 5-14 Serum or plasma urea nitrogen measurement (mass/volume) 9 mg/dL 7-18 Serum or plasma creatinine measurement (mass/volume) 0.76 mg/dL 0.60-1.30 Serum or plasma urea nitrogen/creatinine mass ratio 12 NRG Serum or plasma creatinine measurement with calculation of estimated glomerular filtration rate > NRG Serum or plasma glucose measurement (mass/volume) 97 mg/dL 70-105 Serum or plasma calcium measurement (mass/volume) 9.1 mg/dL 8.5-10.1 Serum or plasma total bilirubin measurement (mass/volume) 0.4 mg/dL 0.1-1.0 Serum or plasma alkaline phosphatase measurement (enzymatic activity/volume) 71 U/L 40-136 Serum or plasma aspartate aminotransferase measurement (enzymatic activity/ volume) 15 U/L 5-34 Serum or plasma alanine aminotransferase measurement (enzymatic activity/volume ) 14 U/L 0-55 Serum or plasma protein measurement (mass/volume) 7.3 g/dL 6.4-8.2 Serum or plasma albumin measurement (mass/volume) 4.2 g/dL 3.2-4.5 Encounters ACCT No. Visit Date/Time Discharge Status Pt. Type Provider Facility Loc./Unit Complaint [id number] 12/12/2017 07:10:00 12/12/2017 23:59:59 CLS Outpatient ETHAN BELL MD [facility] RAD RIGHT EAR PAIN, NAUSEA [id number] 11/29/2017 07:23:00 11/29/2017 23:59:59 CLS Outpatient KATE BECERRA DO [facility] RAD ABDOMINAL PAIN [id number] 11/28/2017 10:45:00 11/28/2017 23:59:59 CLS Preadmit KATE BECERRA DO [facility] RAD PELVIC PAIN,MALAISE, BILIRUBINURIA [id number] 2017 11:25:00 2017 23:59:59 CLS Outpatient ROMEROTESHA BOB Juany ROTARY DRYER OPERATOR [facility] LAB PELVIC PAIN [id number] 06/21/2017 20:11:00 06/21/2017 22:36:00 DIS Emergency JOSE GALLARDO, MONISHA Jo [facility] ER DIARRHEA,VOMITING [id number] 05/18/2016 13:01:00 05/18/2016 23:59:59 CLS Outpatient KATE BECERRA DO [facility] RAD LT MASTALGIA [id number] 08/07/2014 06:00:00 08/08/2014 11:20:00 DIS Outpatient ROZ WAGNER DO S [facility] SDC ENDOMETRIOSIS [id number] 07/31/2014 08:33:00 07/31/2014 23:59:59 CLS Outpatient ROZ WAGNER DO [facility] PREOP ENDOMETRIOSIS [id number] 06/24/2014 14:36:00 06/24/2014 23:59:59 CLS Outpatient GAYTANADOLPH SOUZA ROTARY DRYER OPERATOR [facility] RAD THYROMEGALY, PELVIC PAIN [id number] 01/01/2014 20:14:00 01/02/2014 11:50:00 DIS Outpatient GONZALES SHIELDS DO [facility] SDC APPENDICITIS [id number] 12/01/2011 14:06:00 Document Registration [id number] 11/22/2011 18:48:00 Document Registration [id number] 04/02/2011 08:36:00 Document Registration 04/201702/16/2018 10:13:19 02/16/2018 23:59:59 CLS Outpatient [id number] 02/19/2018 09:58:00 02/19/2018 23:59:00 DIS Outpatient Kate Becerra
== END 2018-02-27 20:19 | disposition home or self-care (01) ==
LOC: EDUNIT# 17:55 → ER 17:56
DX: A21.9 Tularemia, unspecified (principal); R51 Headache; R07.89 Other chest pain; Z77.22 Contact with and (suspected) exposure to environmental tobacco smoke (acute) (chronic); Z90.89 Acquired absence of other organs; Z90.710 Acquired absence of both cervix and uterus; Z98.890 Other specified postprocedural states
CPT/HCPCS: 36415; 71046; 80053; 83735; 83874; 84484; 85025; 85610; 85730; 86141; 86308; 87430; 93005

== ENCOUNTER → 2018-06-05 | Outpatient (CLI) | payer BC ==
[~2018-06-05] MED LIST changes: +DOXY100C2
== END ==
LOC: LAB 11:17
PROVIDERS: ATTEND Family Medicine
DX: A21.9 Tularemia, unspecified (principal)
CPT/HCPCS: 36415; 86668

== ENCOUNTER → 2019-02-11 | Outpatient (CLI) | payer BC ==
--- NOTE | 2019-02-11 11:02 | Diagnostic Imaging Report ---
PROCEDURE: US Gallbladder. TECHNIQUE: Multiple Real-time grayscale images were obtained over the right upper quadrant in various projections. INDICATION: Right upper quadrant pain. FINDINGS: The liver is normal in size at 16.9 cm. No discrete liver mass is identified. The portal vein is patent and shows normal direction of flow. The gallbladder is without stones or sludge. No wall thickening or biliary ductal dilatation is seen. The pancreas is poorly visualized due to bowel gas. The right kidney is without calculus or hydronephrosis. There is no ascites. IMPRESSION: No evidence of cholelithiasis or acute cholecystitis. Dictated by: Dictated on workstation # [id number]
--- NOTE | 2019-02-11 14:11 | Diagnostic Imaging Report ---
INDICATION: Routine screening. COMPARISON: 02/19/2018 and 05/18/2016. TECHNIQUE: 2D and 3D bilateral screening mammography was performed with CAD. FINDINGS: Scattered fibroglandular densities are identified bilaterally. There are benign appearing calcifications bilaterally. The overall parenchymal pattern appears to be stable. No mass or malignant appearing microcalcifications are seen. The axillae are unremarkable. IMPRESSION: No mammographic features suspicious for malignancy are identified. ACR BI-RADS Category 2: Benign findings. Result letter will be mailed to the patient. Note: At least 10% of breast cancer is not imaged by mammography. Dictated by: Dictated on workstation # [id number]
== END ==
LOC: RAD 08:35
PROVIDERS: ATTEND Family Medicine
DX: Z12.31 Encounter for screening mammogram for malignant neoplasm of breast (principal); R10.11 Right upper quadrant pain
CPT/HCPCS: 76705; 77067

== ENCOUNTER → 2019-03-26 | Outpatient (REF) ==
--- NOTE | 2019-03-26 15:03 | Diagnostic Imaging Report ---
PATIENT HISTORY: INVERSION INJURY, RT ANKLE. TECHNIQUE: Three views of the right ankle. COMPARISON: None. FINDINGS: No acute fracture or dislocation is seen at the right ankle. Alignment appears normal. Joint spaces are preserved. The ankle mortise is symmetric, and the talar dome is intact. No significant ankle joint effusion is seen. IMPRESSION: No acute osseous abnormality is seen in the right ankle. Dictated by: Dictated on workstation # [id number]
== END | disposition home or self-care (01) ==
LOC: OCC 14:25
PROVIDERS: ATTEND Family Medicine
CPT/HCPCS: 73610

== ENCOUNTER → 2019-12-09 | Outpatient (CLI) | payer BC ==
[2019-12-09 14:34] LABS: BASOPHILS % (AUTO) 0 % (0-10); EOSINOPHILS # (AUTO) 0.1 10^3/uL (0.0-0.3); EOSINOPHILS % (AUTO) 1 % (0-10); HEMATOCRIT 40 % (35-52); HEMOGLOBIN 13.4 G/DL (11.5-16.0); LYMPHOCYTES # (AUTO) 2.8 X 10^3 (1.0-4.0); LYMPHOCYTES % (AUTO) 31 % (12-44); MEAN CORPUSCULAR HEMOGLOBIN 30 PG (25-34); MEAN CORPUSCULAR HGB CONC 34 G/DL (32-36); MEAN CORPUSCULAR VOLUME 88 FL (80-99); MEAN PLATELET VOLUME 9.1 FL (7.4-10.4); MONOCYTES # (AUTO) 0.4 X 10^3 (0.0-1.0); MONOCYTES % (AUTO) 5 % (0-12); NEUTROPHILS # (AUTO) 5.8 X 10^3 (1.8-7.8); NEUTROPHILS % (AUTO) 63 % (42-75); PLATELET COUNT 298 10^3/uL (130-400); RED CELL DISTRIBUTION WIDTH 13.4 % (10.0-14.5); WHITE BLOOD COUNT 9.2 10^3/uL (4.3-11.0)
[2019-12-09 14:50] LABS: ALANINE AMINOTRANSFERASE 13 U/L (0-55); ALBUMIN 3.8 GM/DL (3.2-4.5); ALKALINE PHOSPHATASE 69 U/L (40-136); BILIRUBIN,TOTAL 0.2 MG/DL (0.1-1.0); BUN/CREATININE RATIO 17; CALCIUM 8.9 MG/DL (8.5-10.1); CARBON DIOXIDE 20 MMOL/L (21-32); CHLORIDE 109 MMOL/L (98-107); CREATININE SERUM 0.72 MG/DL (0.60-1.30); GFR ESTIMATED > 60; GLUCOSE 116 MG/DL (70-105); POTASSIUM 3.6 MMOL/L (3.6-5.0); SODIUM 140 MMOL/L (135-145); TOTAL PROTEIN 6.9 GM/DL (6.4-8.2)
[2019-12-09 15:12] LABS: FREE T4 (FREE THYROXINE) 0.84 NG/DL (0.70-1.48)
== END ==
LOC: LAB 14:06
PROVIDERS: ATTEND Family Medicine
DX: Z13.1 Encounter for screening for diabetes mellitus (principal); R53.83 Other fatigue; R10.9 Unspecified abdominal pain
CPT/HCPCS: 36415; 80053; 83036; 84439; 84443; 85025

== ENCOUNTER 2019-12-24 13:37 | Outpatient (RCR) | payer BC | END 2020-03-23 | disposition home or self-care (01) | LOC: CARD 13:37 | PROVIDERS: ATTEND Family Medicine | DX: R00.2 Palpitations (principal) ==

== ENCOUNTER → 2020-04-17 | Outpatient (CLI) | payer BC | LOC: CARD 08:25 | PROVIDERS: ATTEND Family Medicine | DX: R00.2 Palpitations (principal); Z82.49 Family history of ischemic heart disease and other diseases of the circulatory system | CPT/HCPCS: 93306 ==

== ENCOUNTER → 2020-04-17 | Outpatient (CLI) | payer BC ==
--- NOTE | 2020-04-17 11:49 | Diagnostic Imaging Report ---
INDICATION: Routine screening. Comparison is made with prior mammogram 02/11/2019 and 02/19/2018. 2-D and 3-D bilateral screening mammography was performed with CAD. Scattered fibroglandular densities are identified bilaterally. The parenchymal pattern is stable. No mass or malignant appearing microcalcifications are seen. Axillae are unremarkable. IMPRESSION: BI-RADS Category 1 No mammographic features suspicious for malignancy are identified. ACR BI-RADS Category 1: Negative. Result letter will be mailed to the patient. Note: At least 10% of breast cancer is not imaged by mammography. Dictated by: Dictated on workstation # [id number]
== END ==
LOC: RAD 08:27
PROVIDERS: ATTEND Obstetrics & Gynecology
DX: Z12.31 Encounter for screening mammogram for malignant neoplasm of breast (principal)
CPT/HCPCS: 77063; 77067

== ENCOUNTER → 2021-02-10 | Outpatient (CLI) | payer BC ==
--- NOTE | 2021-02-10 09:22 | Diagnostic Imaging Report ---
INDICATION: Palpable lump left breast. COMPARISON: 04/17/2020 and 02/11/2019. TECHNIQUE: 2D and 3D bilateral diagnostic mammography was performed with CAD. FINDINGS: Scattered fibroglandular densities are noted bilaterally. A BB marker was placed at the area of palpable abnormality in the upper outer left breast. No underlying abnormality is seen. There is no mass. No malignant-appearing microcalcifications are seen. The axillae are unremarkable. IMPRESSION: No mammographic features suspicious for malignancy are identified. Even so, directed sonographic interrogation of the area of palpable abnormality in the left breast is recommended and will be performed today. ACR BI-RADS Category 0: Incomplete. (Needs additional imaging evaluation). Result letter will be mailed to the patient. Note: At least 10% of breast cancer is not imaged by mammography. Dictated by: Dictated on workstation # [id number]
--- NOTE | 2021-02-10 10:10 | Diagnostic Imaging Report ---
INDICATION: Palpable lump left breast. COMPARISON: Correlation is made to the diagnostic mammogram from earlier this same day. FINDINGS: Sonographic interrogation of the area of palpable lump in the upper and outer left breast was performed. There is a small hypoechoic nodule just below the skin surface at the 1 o'clock location 15 cm from the nipple measuring 6 mm x 5 mm x 5 mm. No internal vascularity is seen. This has the appearance of a small sebaceous cyst. No other abnormalities are seen. IMPRESSION: Findings suggestive of a 6 mm sebaceous cyst at the area of palpable abnormality in the 1 o'clock location of the left breast. The patient may return to routine annual screening mammography. ACR BI-RADS Category 2: Benign findings. Dictated by: Dictated on workstation # [id number]
== END ==
LOC: RAD 08:15
PROVIDERS: ATTEND Obstetrics & Gynecology
DX: N60.02 Solitary cyst of left breast (principal)
CPT/HCPCS: 76642; 77066; G0279; 77062

== ENCOUNTER → 2021-02-10 | Outpatient (CLI) | payer BC ==
[2021-02-10 08:42] LABS: BASOPHILS # (AUTO) 0.1 10^3/uL (0.0-0.1); BASOPHILS % (AUTO) 1 % (0-10); EOSINOPHILS # (AUTO) 0.1 10^3/uL (0.0-0.3); EOSINOPHILS % (AUTO) 1 % (0-10); HEMATOCRIT 42 % (35-52); LYMPHOCYTES # (AUTO) 2.6 10^3/uL (1.0-4.0); LYMPHOCYTES % (AUTO) 29 % (12-44); MEAN CORPUSCULAR HEMOGLOBIN 30 pg (25-34); MEAN CORPUSCULAR HGB CONC 33 g/dL (32-36); MEAN CORPUSCULAR VOLUME 90 fL (80-99); MEAN PLATELET VOLUME 9.2 fL (9.0-12.2); MONOCYTES # (AUTO) 0.7 10^3/uL (0.0-1.0); MONOCYTES % (AUTO) 7 % (0-12); NEUTROPHILS # (AUTO) 5.5 10^3/uL (1.8-7.8); NEUTROPHILS % (AUTO) 61 % (42-75); PLATELET COUNT 329 10^3/uL (130-400); WHITE BLOOD COUNT 9.1 10^3/uL (4.3-11.0)
[2021-02-10 08:43] LABS: POTASSIUM 3.7 MMOL/L (3.6-5.0)
[2021-02-10 08:44] LABS: CALCIUM 8.9 MG/DL (8.5-10.1)
[2021-02-10 08:47] LABS: BILIRUBIN,TOTAL 0.5 MG/DL (0.1-1.0)
[2021-02-10 08:49] LABS: CREATININE SERUM 0.76 MG/DL (0.60-1.30)
[2021-02-10 09:14] LABS: FREE T4 (FREE THYROXINE) 0.94 NG/DL (0.70-1.48)
== END ==
LOC: LAB 08:17
PROVIDERS: ATTEND Family Medicine
DX: Z00.00 Encounter for general adult medical examination without abnormal findings (principal); R53.83 Other fatigue; R00.2 Palpitations
CPT/HCPCS: 36415; 80053; 80061; 84439; 84443; 85025

== ENCOUNTER → 2021-02-19 | Outpatient (CLI) | payer BC | LOC: LAB 11:57 | PROVIDERS: ATTEND Family Medicine | DX: N95.9 Unspecified menopausal and perimenopausal disorder (principal) | CPT/HCPCS: 36415; 82670; 83001; 83002; 84144 ==

== ENCOUNTER → 2021-07-26 | Outpatient (CLI) | payer BC ==
[~2021-07-26] MED LIST changes: -DOXY100C2; +DOXY100C5
--- NOTE | 2021-07-26 16:45 | Diagnostic Imaging Report ---
INDICATION: Pneumonia and back pain. COMPARISON: 02/27/2018. FINDINGS: The heart size, mediastinal configuration, and pulmonary vascularity are within normal limits. There is no pleural effusion, pneumothorax, or pneumonia. The osseous structures are unremarkable. IMPRESSION: No acute cardiopulmonary abnormality. Dictated by: Dictated on workstation # [id number]
== END ==
LOC: RAD 13:31
PROVIDERS: ATTEND Family Medicine
DX: J18.9 Pneumonia, unspecified organism (principal); M54.9 Dorsalgia, unspecified
CPT/HCPCS: 71046

== ENCOUNTER → 2021-09-23 | Outpatient (CLI) | payer BC ==
[2021-09-23 08:29] LABS: ALBUMIN 3.9 GM/DL (3.2-4.5); BILIRUBIN,TOTAL 0.3 MG/DL (0.1-1.0); CALCIUM 8.9 MG/DL (8.5-10.1); CREATININE SERUM 0.72 MG/DL (0.60-1.30); POTASSIUM 4.1 MMOL/L (3.6-5.0); TOTAL PROTEIN 6.8 GM/DL (6.4-8.2)
--- NOTE | 2021-09-23 10:03 | Diagnostic Imaging Report ---
PROCEDURE: US Gallbladder. TECHNIQUE: Multiple real-time grayscale images were obtained over the right upper quadrant in various projections. INDICATION: Right upper quadrant pain and nausea after eating. The liver is normal in size at 14.4 cm. The portal vein is patent and shows normal direction of flow. The liver does show some increased echogenicity consistent with hepatic steatosis. No discrete liver mass is detected. The gallbladder is without stones or sludge. There is no wall thickening or biliary ductal dilatation. Pancreas is unremarkable. Aorta is nonaneurysmal. IVC is patent. Right kidney is without calculi or hydronephrosis. There is no ascites. IMPRESSION: 1. Hepatic steatosis. 2. The study is otherwise unremarkable. Dictated by: Dictated on workstation # [id number]
== END ==
LOC: RAD 08:00
PROVIDERS: ATTEND Family Medicine
DX: K76.0 Fatty (change of) liver, not elsewhere classified (principal)
CPT/HCPCS: 36415; 76705; 80053; 83690

== ENCOUNTER → 2021-09-27 | Outpatient (CLI) | payer BC ==
[~2021-09-27] MED LIST changes: +CATHETER FLUSH 10 ML SYR IVP PRN
--- NOTE | 2021-09-27 12:18 | Diagnostic Imaging Report ---
INDICATION: Right upper quadrant pain with nausea after eating. TECHNIQUE: Patient was administered 5.1 mCi of technetium-99m Choletec intravenously, and imaging over the abdomen was performed. After 60 minutes, patient ingested 8 ounces of Ensure, and gallbladder ejection fraction was calculated. FINDINGS: There is homogeneous uptake of activity by the liver with prompt excretion of activity into the gallbladder and common duct. There is normal passage of activity into the small bowel. Gallbladder ejection fraction is abnormally low at 22%. Normal values are 35% or greater. IMPRESSION: 1. Patent cystic duct and common bile duct. 2. Low gallbladder ejection fraction of 22%. Dictated by: Dictated on workstation # [id number]
== END ==
LOC: CARD 09:35
PROVIDERS: ATTEND Family Medicine
DX: R10.11 Right upper quadrant pain (principal); R11.0 Nausea
CPT/HCPCS: 78227; A9537

== ENCOUNTER → 2021-09-30 | Outpatient (CLI) | payer BC ==
[~2021-09-30] MED LIST changes: -CATHETER FLUSH 10 ML SYR IVP PRN
[2021-09-30 17:12] LABS: HEMATOCRIT 40 % (35-52); HEMOGLOBIN 13.2 g/dL (11.5-16.0); MEAN CORPUSCULAR HEMOGLOBIN 30 pg (25-34); MEAN CORPUSCULAR HGB CONC 33 g/dL (32-36); MEAN CORPUSCULAR VOLUME 90 fL (80-99); MEAN PLATELET VOLUME 9.2 fL (9.0-12.2); PLATELET COUNT 346 10^3/uL (130-400); WHITE BLOOD COUNT 11.8 10^3/uL (4.3-11.0)
== END ==
LOC: LAB 16:30
PROVIDERS: ATTEND Surgery
DX: Z01.812 Encounter for preprocedural laboratory examination (principal)
CPT/HCPCS: 36415; 85027